=== PATIENT | female | born 1960 | race African-American/Black ===

== ENCOUNTER 2020-11-06 23:39 | Emergency (ER) | payer OTHER, MEDICAID ==
[~2020-11-06] VITALS: Ht 170.2 cm; Wt 79.0 kg
[2020-11-07] MEDS ORDERED: ACETAMINOPHEN 325MG TABLET PO STA (00:54)
[2020-11-07] MEDS ORDERED: DEXAMETHASONE 10 MG/ML VIAL IV ONE (01:00)
[2020-11-07] MEDS ORDERED: IPRATROPIUM BROMIDE (0.02%) 0.5MG/2.5ML NEB HHN STA (01:05)
[2020-11-07] MEDS ORDERED: CEFTRIAXONE 1 G PREMIX 50 ML IV ONE (01:15)
[2020-11-07 01:23] LABS: BASOPHILS % 0.2 % (0.0-2.0); HEMATOCRIT. 34.4 % (36.0-48.0); HEMOGLOBIN. 11.9 g/dL (12.0-16.0); LYMPHOCYTES % 23.3 % (20.0-50.0); MEAN CORPUSCULAR VOLUME 81.1 fL (81.0-99.0); MEAN PLATELET VOLUME 7.8 fl (7.4-10.4); MONOCYTES % 12.6 % (2.0-8.0); NEUTROPHILS % 63.9 % (40.0-76.0); PLATELET 249 x1000/uL (130-400); RED BLOOD CELL COUNT 4.24 mill/uL (4.2-5.4); RED CELL DISTRIBUTION WIDTH 14.7 % (11.6-14.6)
[2020-11-07 01:28] LABS: CHLORIDE 105 mEq/L (98-107)
[2020-11-07 01:37] LABS: CREATINE KINASE 163 IU/L (26-192)
[2020-11-07 01:51] LABS: PROTHROMBIN TIME 11.1 sec (9.6-11.0)
[2020-11-07] MEDS: ALBUTEROL (0.083%) 2.5MG/3ML NEB HHN SCH ×3 (02:26→02:47)
[2020-11-07 02:52] LABS: CLARITY URINE CLOUDY (CLEAR); COLOR URINE DK YELLOW (YELLOW); KETONES URINE 1+ (NEGATIVE); LEUKOCYTE ESTERASE URINE NEGATIVE (NEGATIVE); NITRITE URINE NEGATIVE (NEGATIVE); OCCULT BLOOD URINE 1+ (NEGATIVE); PH URINE 5.5 (4.5-8.0); PROTEIN URINE 3+ (NEGATIVE); SPECIFIC GRAVITY URINE 1.027 (1.005-1.030)
[2020-11-07 03:15] LABS: *AMPHETAMINES SCREEN URINE NEGATIVE (NEGATIVE); *BARBITURATES SCREEN URINE NEGATIVE (NEGATIVE); *BENZODIAZEPINES SCREEN URINE NEGATIVE (NEGATIVE); *COCAINE SCREEN URINE NEGATIVE (NEGATIVE); METHADONE URINE SCREEN NEGATIVE (NEGATIVE); OPIATES URINE SCREEN NEGATIVE (NEGATIVE)
[2020-11-07 03:16] LABS: CANNABINOID URINE SCREEN NEGATIVE (NEGATIVE); PHENCYCLIDINE URINE SCREEN NEGATIVE (NEGATIVE)
[2020-11-07] MEDS ORDERED: SODIUM CHLORIDE 0.9% 500 ML IV ONE (05:00)
[2020-11-07 06:14] VITALS: BP 119/79
== END 2020-11-07 06:14 | disposition short-term general hospital (02) ==
LOC: ER 23:39 → CANBEDREQ 11-07 06:43
DX: U07.1 COVID-19 (principal); A41.89 Other specified sepsis; R65.20 Severe sepsis without septic shock; B34.9 Viral infection, unspecified; E11.9 Type 2 diabetes mellitus without complications; I10 Essential (primary) hypertension; Z88.6 Allergy status to analgesic agent; Z91.018 Allergy to other foods; Z98.890 Other specified postprocedural states
CPT/HCPCS: 36415; 71045; 80053; 80305; 81003; 82550; 83605; 83615; 83880; 84145; 84484; 85025; 85384; 85610; 86140; 86850; 86900; 86901; 87040; 87086; 93005; 94640; 96365; 96375; 99285; C9803; J0696; J1100; U0003; U0005